=== PATIENT | female | born 1975 | race African-American/Black ===

== ENCOUNTER 2020-08-10 08:43 | Inpatient (IN) ==
[2020-08-10] MEDS ORDERED: AZITHROMYCIN INJ 500 MG in SODIUM CHLORIDE 0.9% 250 ML IV STA (09:02)
[2020-08-10] MEDS ORDERED: cefTRIAXone 1,000 MG in SODIUM CHLORIDE 0.9% 100 ML IV STA (09:02)
[2020-08-10] MEDS ORDERED: DEXAMETHASONE 10 MG/1 ML VIAL IV ONE (09:02)
[2020-08-10] MEDS ORDERED: MELATONIN 3 MG TABLET PO PRN (10:15)
[2020-08-10] MEDS ORDERED: DOCUSATE SODIUM 100 MG CAPSULE PO PRN (10:19)
[2020-08-10] MEDS ORDERED: DEXTROSE 50% 25 GM/50 ML VIAL IV PRN (10:19)
[2020-08-10] MEDS ORDERED: GLUCAGON 1 MG VIAL IM PRN (10:19)
[2020-08-10] MEDS ORDERED: ACETAMINOPHEN 325 MG TABLET PO PRN (10:19)
[2020-08-10] MEDS ORDERED: SODIUM CHLORIDE 0.9% 1,000 ML IV PRN (10:29)
[2020-08-10] MEDS ORDERED: hydrALAZINE 20 MG/1 ML VIAL IV PRN (10:49)
[2020-08-10] MEDS ORDERED: IBUPROFEN 400 MG TABLET PO PRN (10:52)
[2020-08-10] MEDS ORDERED: FLUTICASONE 50 MCG NASAL SPRAY 16 GM BOTTLE BOTH NARES PRN (10:52)
[2020-08-10] MEDS ORDERED: DICLOFENAC 1% GEL 100 GM TUBE TOP PRN (10:52)
[2020-08-10] MEDS: INSULIN LISPRO 100 UNIT/ML SUBCUT SCH ×3 (11:44→21:37)
[2020-08-10] MEDS: DOXYCYCLINE HYCLATE 100 MG CAPSULE PO SCH ×2 (11:44→21:37)
[2020-08-10] MEDS: carvediloL 25 MG TABLET PO SCH ×2 (11:44→21:37)
[2020-08-10] MEDS: SEVELAMER CARBONATE 800 MG TABLET PO SCH ×2 (11:44→16:23)
[2020-08-10] MEDS: HEPARIN 5,000 UNIT/1 ML VIAL SUBCUT SCH ×2 (11:44→17:47)
[2020-08-10 11:54] LABS: Calcium 8.5 MG/DL (8.5-10.1); Osmolality,Calculated 286.7 MOS/KG (273-304); Potassium 4.4 MMOL/L (3.5-5.1)
[2020-08-10] MEDS: ALBUTEROL INHALER 18 GM INH SCH (19:36)
[2020-08-10] MEDS: ASCORBIC ACID 500 MG TABLET PO SCH (21:36)
[2020-08-10] MEDS: FAMOTIDINE 20 MG TABLET PO SCH (21:36)
[2020-08-10] MEDS: TIMOLOL 0.5% OPH SOLN 5 ML BOTTLE BOTH EYES SCH (21:37)
[2020-08-11] MEDS: ALBUTEROL INHALER 18 GM INH SCH ×4 (00:40→20:29)
[2020-08-11] MEDS: HEPARIN 5,000 UNIT/1 ML VIAL SUBCUT SCH ×3 (02:55→17:50)
[2020-08-11 05:53] LABS: Basophils % 0.3 % (0.0-0.8); Hematocrit 31.6 VOL% (35.7-47.0); Hemoglobin 10.1 GM/DL (12.0-16.0); Immature Granulocytes % 1.2 %; Immature Granulocytes Absolute 0.04 #; Lymphocytes # 0.9 10*3/uL (1.4-4.0); Lymphocytes % 24.7 % (21.3-54.2); Mean Corpuscular Volume 86.6 FL (87-102); Mean Platelet Volume 11.6 FL (9.6-12.0); Monocytes % 9.6 % (1.7-12.7); Neutrophils % 64.2 % (38.7-73.9); Platelet Count 147 T/CUMM (130-400); Red Blood Count 3.65 MC/CUMM (3.8-5.5); White Blood Count 3.4 T/CUMM (4-12)
[2020-08-11 06:04] LABS: PT Patient Result 10.9 SECS (9.8-11.9)
[2020-08-11 06:20] LABS: Albumin 2.7 G/DL (3.4-5.0); Bilirubin,Total 1.4 MG/DL (0.2-1.0); Calcium 8.6 MG/DL (8.5-10.1); Ferritin 3442.5 ng/ml (8-252); Osmolality,Calculated 293.7 MOS/KG (273-304); Potassium 4.8 MMOL/L (3.5-5.1); Total Protein 7.1 G/DL (6.4-8.3)
[2020-08-11 06:28] LABS: Hypochromasia 1+
[2020-08-11 06:29] LABS: Microcytosis 1+; Ovalocytes Few; Platelet Estimate Adequate; Tear Drop Cells Slight
[2020-08-11 07:06] LABS: Sedimentation Rate-Westergren 90 MM/HR (0-20)
[2020-08-11 07:40] LABS: Hepatitis B Core IgM Quant < 0.05 Index; Hepatitis B Surface Ag Quant < 0.10 Index; Hepatitis B Surface Ag Result Non-Reactive (NonReactive); Hepatitis C Virus Ab Quant 0.08 Index; Hepatitis C Virus Ab Result Non-Reactive (NonReactive)
[2020-08-11] MEDS: INSULIN LISPRO 100 UNIT/ML SUBCUT SCH ×4 (08:20→20:27)
[2020-08-11] MEDS: carvediloL 25 MG TABLET PO SCH ×2 (09:18→20:27)
[2020-08-11] MEDS: CETIRIZINE 10 MG TABLET PO SCH (09:18)
[2020-08-11] MEDS: PANTOPRAZOLE 40 MG TABLET PO SCH (09:18)
[2020-08-11] MEDS: ASCORBIC ACID 500 MG TABLET PO SCH ×2 (09:18→20:27)
[2020-08-11] MEDS: ZINC GLUCONATE 50 MG TABLET PO SCH (09:18)
[2020-08-11] MEDS: FAMOTIDINE 20 MG TABLET PO SCH ×2 (09:18→20:27)
[2020-08-11] MEDS: DOXYCYCLINE HYCLATE 100 MG CAPSULE PO SCH ×2 (09:18→20:27)
[2020-08-11] MEDS: CHOLECALCIFEROL 1,000 UNIT TABLET PO SCH (09:18)
[2020-08-11] MEDS: SEVELAMER CARBONATE 800 MG TABLET PO SCH ×3 (09:18→17:49)
[2020-08-11] MEDS: DEXAMETHASONE 4 MG/1 ML VIAL IV SCH (09:19)
[2020-08-11] MEDS: TIMOLOL 0.5% OPH SOLN 5 ML BOTTLE BOTH EYES SCH ×2 (09:19→20:28)
[2020-08-11] MEDS ORDERED: BENZONATATE 100 MG CAPSULE PO PRN (15:24)
[2020-08-11] MEDS: amLODIPine 10 MG TABLET PO SCH (15:50)
[2020-08-12] MEDS: ALBUTEROL INHALER 18 GM INH SCH ×2 (02:10→06:41)
[2020-08-12] MEDS: HEPARIN 5,000 UNIT/1 ML VIAL SUBCUT SCH ×2 (04:44→09:58)
[2020-08-12 05:47] LABS: Basophils % 0.2 % (0.0-0.8); Hematocrit 30.2 VOL% (35.7-47.0); Immature Granulocytes % 1.1 %; Immature Granulocytes Absolute 0.05 #; Lymphocytes % 21.5 % (21.3-54.2); Mean Corpuscular HGB Conc 33.1 GM/DL (32-36); Mean Corpuscular Volume 83.2 FL (87-102); Mean Platelet Volume 10.5 FL (9.6-12.0); Monocytes % 7.4 % (1.7-12.7); Neutrophils % 69.8 % (38.7-73.9); Platelet Count 148 T/CUMM (130-400); Red Blood Count 3.63 MC/CUMM (3.8-5.5); Red Cell Distribution Width 13.9 % (9.3-17.3); White Blood Count 4.8 T/CUMM (4-12)
[2020-08-12 06:06] LABS: Calcium 8.8 MG/DL (8.5-10.1); Osmolality,Calculated 288.7 MOS/KG (273-304); Potassium 4.4 MMOL/L (3.5-5.1)
[2020-08-12 06:14] LABS: Hypochromasia 1+; Microcytosis 1+; Ovalocytes Slight; Platelet Estimate Adequate
[2020-08-12 06:54] LABS: Ferritin 3687.9 ng/ml (8-252)
[2020-08-12] MEDS: INSULIN LISPRO 100 UNIT/ML SUBCUT SCH ×2 (07:28→10:46)
[2020-08-12] MEDS: CHOLECALCIFEROL 1,000 UNIT TABLET PO SCH (08:01)
[2020-08-12] MEDS: ASCORBIC ACID 500 MG TABLET PO SCH (08:01)
[2020-08-12] MEDS: PANTOPRAZOLE 40 MG TABLET PO SCH (08:01)
[2020-08-12] MEDS: ZINC GLUCONATE 50 MG TABLET PO SCH (08:01)
[2020-08-12] MEDS: amLODIPine 10 MG TABLET PO SCH (08:01)
[2020-08-12] MEDS: SEVELAMER CARBONATE 800 MG TABLET PO SCH ×2 (08:01→11:36)
[2020-08-12] MEDS: DOXYCYCLINE HYCLATE 100 MG CAPSULE PO SCH (08:01)
[2020-08-12] MEDS: DEXAMETHASONE 4 MG/1 ML VIAL IV SCH (08:02)
[2020-08-12] MEDS: TIMOLOL 0.5% OPH SOLN 5 ML BOTTLE BOTH EYES SCH (08:02)
[2020-08-12] MEDS: carvediloL 25 MG TABLET PO SCH (08:02)
[2020-08-12] MEDS: CETIRIZINE 10 MG TABLET PO SCH (08:02)
[2020-08-12] MEDS: FAMOTIDINE 20 MG TABLET PO SCH (08:02)
[2020-08-12 10:42] VITALS: BP 166/91
== END 2020-08-12 13:02 | disposition home or self-care (01) | DRG 177 ==
LOC: N.ED 08:43 → SUATTDRO 10:19 → N.EDINP 10:19 → N.2E 10:53
PROVIDERS: ADMIT Emergency Medicine; ATTEND Internal Medicine